=== PATIENT | female | born 1970 | race Caucasian/White ===

== ENCOUNTER 2018-08-04 08:24 | Emergency (ER) | payer OTHER ==
[2018-08-04 08:32] VITALS: BP 127/73
--- NOTE | 2018-08-04 09:05 | UC ---
Knee Pain HPI - HPI Summary HPI Summary: This pt is a 47 year old F with a CC of left knee pain since 08/02/18. She states she was stopping her daughter going downhill on rollerblades and fell. She notes the swelling has decreased since, but is concerned of injury. She has wrapped her knee, iced it, elevated, and taken ibuprofen. She notes decreased ROM/stiffness of her knee, and that the pain is more on the surface than the inside. PT states she feels it is getting better and her ROM is improving. Pt is limping secondary to refraining from bending knee. She denies hitting her head, and other injuries besides a left elbow abrasion, which she has treated with betadine and triple antibiotic ointment. She denies paresthesia or numbness in her hand, and endorses full ROM. Tetanus UTD. Not immunocompromised. No analgesia today. No concern for pt's medications reviewed this visit - History of Current Complaint Chief Complaint: UCLowerExtremity Stated Complaint: KNEE INJURY Time Seen by Provider: 08/04/18 08:44 Hx Obtained From: Patient Hx Last Menstrual Period: 07/30/18 Onset/Duration: Sudden Onset, Lasting Days, Still Present Severity Initially: Moderate Severity Currently: Moderate Pain Intensity: 7 Pain Scale Used: 0-10 Numeric Character: Stiffness Aggravating Factor(s): Movement Alleviating Factor(s): Position, Cold, OTC Meds Associated Signs And Symptoms: Positive: Swelling, Redness, Bruising. Negative : Fever, Weakness, Numbness, Tingling Able to Bear Weight: Yes - Allergies/Home Medications Allergies/Adverse Reactions: Allergies Allergy/AdvReac Type Severity Reaction Status Date / Time No Known Allergies Allergy Verified 08/04/18 08:32 Home Medications: Home Medications Levothyroxine TAB* [Synthroid TAB*] 1 tab PO DAILY 08/04/18 [History Confirmed 08/04/18] PMH/Surg Hx/FS Hx/Imm Hx Previously Healthy: Yes - Surgical History Surgical History: Yes Surgery Procedure, Year, and Place: 2X C SECTIONS. HERNIA REPAIR - Family History Known Family History: Positive: Hypertension - Mother - Social History Occupation: Employed Full-time Lives: With Family Alcohol Use: Occasionally Substance Use Type: None Smoking Status (MU): Never Smoked Tobacco Review of Systems Constitutional: Negative Skin: Bruising, Other - left knee swelling, erythema, decreased ROM. Left elbow abrasion. Motor: Decreased ROM - left knee Neurovascular: Negative Musculoskeletal: Arthralgia, Decreased ROM, Edema Neurological: Negative Is Patient Immunocompromised?: No All Other Systems Reviewed And Are Negative: Yes Physical Exam - Summary Physical Exam Summary: Vital Signs Reviewed: Yes A+Ox3, no distress Eyes: Conjunctiva Clear, CONSTANTINE. EOM intact and full ENT: Hearing grossly normal TM x 2 clear, mmoist, uvula midline, no exudate, no erythema Neck: Positive: Supple Respiratory: Positive: No respiratory distress, No accessory muscle use + CTA throughout no w/r Cardiovascular: RRR nl s1, s2 no m/r CBT <2 sec abd soft + BS nt/nd no guarding, no distension Musculoskeletal Exam: No spinous process pain c/t/l/s Full AROM left elbow: full flex/ext + pronate/supinate + flex/ext wrist + SLE b/l left knee: + flex/ext with discomfort with full flexsion neg anterior/posterior drawer Neg laxity with lateral joint testing Neurological: Positive: Alert, + sensation throughout + thumb up, a ok, finger spread, finger cross Psychological: Positive: Normal Response To Family Skin: Positive: no rash, Pt with abraison 3cm left elbow well scabbed. no drainage, erythema, fluctuance. mild ecchymosis lateral aspect knee: + diffuse contusion of patellar. quarter sized abraison - no concern for infection + edema medial aspect of patella and slight inferior aspect Triage Information Reviewed: Yes Vital Signs: Initial Vital Signs Temp 97.7 F 08/04/18 08:28 Pulse 77 08/04/18 08:28 Resp 16 08/04/18 08:28 BP 127/73 08/04/18 08:28 Pulse Ox 100 08/04/18 08:28 Diagnostics - Radiology Left knee Xray Interpretation: Positive (See Comments) Radiology Interpretation Completed By: Radiologist - #. Negative for fracture. #. Slight lateral subluxation and mild lateral tilt of the patella relative to the femoral trochlea. This may reflect sequela of recent transient lateral patellar dislocation. #. Anterior and lateral soft tissue swelling. Dr. Peña has reviewed this report. Re-Evaluation - Re-Evaluation First Eval Re-Evaluation Time: 09:35 Change: Unchanged Comment: Reviewed the XR with pt, will apply Amilcar wrap. Patient declined crutches. Recommend ice. Elevate. Motrin Tylenol. Patient given referral to sports medicine orthopedics. Patient states understanding agreement with plan. Return precautions discussed Knee Pain Course/Dx - Course Course Of Treatment: Patient fell 4 days ago we'll try to stop her daughter on rollerblades. Patient sustained abrasion to her left elbow as well as abrasion and contusion to her left knee. Patient states her left knee has been getting progressively less swollen range of motion been getting better but she still concerned and wanted it checked. Patient's taken any analgesia today. Patient is intermittently been using an Amilcar wrap with some benefit. Patient has been applying ice and stepping off of it. On exam patient with abrasions that appear well scabbed. No concern for infection at this time. Patient does have diffuse eat ecchymosis and some edema to the left patella. No ligamentous injury identified on exam. We'll check imaging. Patient comfortable in agreement with plan. Discharge - Sign-Out/Discharge Documenting (check all that apply): Patient Departure - discharge All imaging exams completed and their final reports reviewed: Yes - Discharge Plan Condition: Stable Disposition: HOME Patient Education Materials: Contusion in Adults (ED), Abrasion (ED), Knee Pain (ED) Referrals: [facility] [Provider Group] (call for follow-up early next week ) Tahmina Andrade MD [Primary Care Provider] - Crow Brewer MD [Medical Doctor] - () Additional Instructions: - Okay to cover wound with a thin layer of antibiotic ointment such as Neosporin or Polysporin 2-3 times a day. - Okay to alternate ibuprofen (Advil, Motrin) 600mg and Tylenol every 3 hours as needed for pain. - Slow gentle bending and stretching exercises of the elbow linear important to help restore mobility - Okay to apply ice 20 minutes at a time 2-3 times a day. Do not apply ice before stretching but rather after. - Monitor wounds for signs of infection. This includes redness, red streaking, odor, increased pain, and green discharge. If these occurred recommended you seek reevaluation - Wear Amilcar wrap for comfort and support. This is uncomfortable it's okay to not use this. It is recommended you try to walk is normal without a limp cause injury to your back and right leg. - You've been given contact information for sports medicine clinic and orthopedics. It is recommended you schedule a recheck appointment for early next week. Contact your doctor or return with any questions or concerns. - Billing Disposition and Condition Condition: STABLE Disposition: Home - Attestation Statements Document Initiated by Earlibchrista: Yes Documenting Scribe: Tristan Verdugo Provider For Whom Scribe is Documenting (Include Credential): Dr. Elaina Peña MD Scribe Attestation: I, Tristan Verdugo, scribed for Dr. Elaina Peña MD on 08/04/18 at 1122. Scribe Documentation Reviewed: Yes Provider Attestation: The documentation as recorded by the Tristan cadena accurately reflects the service I personally performed and the decisions made by me, Dr. Elaina Peña MD
--- NOTE | 2018-08-04 09:31 | RAD ---
Indication: Superior medial LEFT patellar knee pain post fall. Comparison: No relevant prior exams available [place] [facility] [place]. Technique: LEFT knee: AP, lateral, sunrise, tunnel views. Report: Slight lateral subluxation and mild lateral tilt of the patella relative to the femoral trochlea. Alignment is otherwise normal. Negative for joint effusion or fracture. Anterior and lateral soft tissue swelling. IMPRESSION: #. Negative for fracture. #. Slight lateral subluxation and mild lateral tilt of the patella relative to the femoral trochlea. This may reflect sequela of recent transient lateral patellar dislocation. #. Anterior and lateral soft tissue swelling.
== END 2018-08-04 09:55 | disposition home or self-care (01) ==
LOC: UCEAST 08:24
DX: S80.02XA Contusion of left knee, initial encounter (principal); S50.312A Abrasion of left elbow, initial encounter; S80.212A Abrasion, left knee, initial encounter; W19.XXXA Unspecified fall, initial encounter; Y93.89 Activity, other specified; Y92.9 Unspecified place or not applicable
CPT/HCPCS: 99212; G0463